=== PATIENT | male | born 1930 | race Caucasian/White ===

== ENCOUNTER 2016-09-16 09:44 | Outpatient (CLI) | payer MEDICARE, BC ==
[2016-09-16 17:55] LABS: BASOPHILS % (AUTO) 0.4 %; EOSINOPHILS # (AUTO) 0.1 10^3/uL (0.0-0.7); EOSINOPHILS % (AUTO) 2.2 %; HCT - HEMATOCRIT 38.6 % (42.0-52.0); HGB - HEMOGLOBIN 12.8 g/dL (14.0-18.0); LYMPHOCYTES # (AUTO) 1.2 10^3/uL (1.5-3.5); LYMPHOCYTES % (AUTO) 23.5 %; MEAN CORPUSCULAR HEMOGLOBIN 30.5 pg (27.0-31.0); MEAN CORPUSCULAR HGB CONC 33.3 g/dL (32.0-36.0); MEAN CORPUSCULAR VOLUME 91.7 fL (80.0-94.0); MEAN PLATELET VOLUME 11.5 fL (7.4-11.4); MONOCYTES # (AUTO) 0.6 10^3/uL (0.0-1.0); MONOCYTES % (AUTO) 12.5 %; NEUTROPHILS # (AUTO) 3.2 10^3/uL (1.5-6.6); NEUTROPHILS % (AUTO) 61.4 %; NUCLEATED RED BLOOD CELLS AUTO 0.2 /100WBC; RED CELL DISTRIBUTION WIDTH 13.4 % (12.0-15.0); UNCORRECTED WHITE BLOOD COUNT 5.1 x10^3/uL; WHITE BLOOD COUNT 5.1 x10^3/uL (4.8-10.8)
[2016-09-16 18:07] LABS: ALBUMIN/GLOBULIN RATIO 1.7 (1.0-2.2); BILIRUBIN,TOTAL 0.6 mg/dL (0.2-1.0); CALCIUM 9.3 mg/dL (8.5-10.3); CREATININE 0.9 mg/dL (0.6-1.2); POTASSIUM 3.8 mmol/L (3.5-5.0); TOTAL PROTEIN 6.7 g/dL (6.7-8.2)
[2016-09-16 18:21] LABS: HEMOGLOBIN A1C 0.68 g/dL
== END 2016-09-16 09:45 | disposition home or self-care (01) ==
LOC: LAB.F 09:44
PROVIDERS: ATTEND Family Medicine
DX: E11.9 Type 2 diabetes mellitus without complications (principal); Z85.46 Personal history of malignant neoplasm of prostate; I10 Essential (primary) hypertension
CPT/HCPCS: 36415; 80053; 82043; 83036; 84153; 85025

== ENCOUNTER 2016-09-18 14:27 | Outpatient (CLI) | payer MEDICARE, BC | END 2016-09-18 14:28 | disposition home or self-care (01) | DX: D64.9 Anemia, unspecified (principal) ==

== ENCOUNTER 2017-04-13 09:07 | Outpatient (CLI) | payer MEDICARE, BC ==
[2017-04-13 19:01] LABS: BASOPHILS % (AUTO) 0.5 %; EOSINOPHILS # (AUTO) 0.2 10^3/uL (0.0-0.7); EOSINOPHILS % (AUTO) 4.2 %; HCT - HEMATOCRIT 39.8 % (42.0-52.0); HGB - HEMOGLOBIN 13.4 g/dL (14.0-18.0); LYMPHOCYTES # (AUTO) 1.2 10^3/uL (1.5-3.5); LYMPHOCYTES % (AUTO) 25.4 %; MEAN CORPUSCULAR HEMOGLOBIN 30.9 pg (27.0-31.0); MEAN CORPUSCULAR HGB CONC 33.7 g/dL (32.0-36.0); MEAN CORPUSCULAR VOLUME 91.7 fL (80.0-94.0); MEAN PLATELET VOLUME 11.6 fL (7.4-11.4); MONOCYTES # (AUTO) 0.6 10^3/uL (0.0-1.0); MONOCYTES % (AUTO) 13.7 %; NEUTROPHILS # (AUTO) 2.7 10^3/uL (1.5-6.6); NEUTROPHILS % (AUTO) 56.2 %; NUCLEATED RED BLOOD CELLS AUTO 0.2 /100WBC; RED BLOOD COUNT 4.34 10^6/uL (4.70-6.10); RED CELL DISTRIBUTION WIDTH 14.5 % (12.0-15.0); UNCORRECTED WHITE BLOOD COUNT 4.7 x10^3/uL; WHITE BLOOD COUNT 4.7 x10^3/uL (4.8-10.8)
[2017-04-13 19:12] LABS: ALBUMIN/GLOBULIN RATIO 1.8 (1.0-2.2); BILIRUBIN,TOTAL 0.8 mg/dL (0.2-1.0); BUN - BLOOD UREA NITROGEN 22 mg/dL (6-20); CALCIUM 9.1 mg/dL (8.5-10.3); CARBON DIOXIDE - CO2 27 mmol/L (21-32); CHLORIDE 103 mmol/L (101-111); CHOL/HDL RATIO 2.3 (<5.0); CHOLESTEROL 164 mg/dL; CREATININE 0.9 mg/dL (0.6-1.2); GFR - MDRD 80 (>89); GLUCOSE 134 mg/dL (70-100); HDL CHOLESTEROL 71 mg/dL; LDL/HDL RATIO 1.1 (<3.6); POTASSIUM 3.6 mmol/L (3.5-5.0); SODIUM 138 mmol/L (135-145); TOTAL PROTEIN 6.7 g/dL (6.7-8.2); TRIGLYCERIDES 65 mg/dL; VLDL CHOLESTEROL 13 mg/dL
[2017-04-13 20:16] LABS: HEMOGLOBIN A1C 0.62 g/dL
== END 2017-04-13 09:08 | disposition home or self-care (01) ==
LOC: LAB.F 09:07
PROVIDERS: ATTEND Family Medicine
DX: D64.9 Anemia, unspecified (principal); E11.9 Type 2 diabetes mellitus without complications; E78.5 Hyperlipidemia, unspecified; C61 Malignant neoplasm of prostate; I10 Essential (primary) hypertension
CPT/HCPCS: 36415; 80053; 80061; 83036; 84443; 85025

== ENCOUNTER 2017-12-07 09:37 | Outpatient (CLI) | payer MEDICARE, BC ==
[2017-12-07 19:16] LABS: ALBUMIN 4.1 g/dL (3.2-5.5); ALBUMIN/GLOBULIN RATIO 1.7 (1.0-2.2); BILIRUBIN,TOTAL 0.8 mg/dL (0.2-1.0); CALCIUM 9.4 mg/dL (8.5-10.3); CREATININE 0.9 mg/dL (0.6-1.2); TOTAL PROTEIN 6.5 g/dL (6.7-8.2)
[2017-12-07 20:03] LABS: HB2 TOTAL 14.1 g/dL; HEMOGLOBIN A1C 0.63 g/dL; HEMOGLOBIN A1C % 6.2 % (4.6-6.2)
== END 2017-12-07 09:38 | disposition home or self-care (01) ==
LOC: LAB.F 09:37
PROVIDERS: ATTEND Family Medicine
DX: E11.9 Type 2 diabetes mellitus without complications (principal)
CPT/HCPCS: 36415; 80053; 83036

== ENCOUNTER 2018-06-09 09:27 | Outpatient (CLI) | payer MEDICARE, BC ==
[2018-06-09 18:01] LABS: ALBUMIN 4.1 g/dL (3.2-5.5); ALBUMIN/GLOBULIN RATIO 1.6 (1.0-2.2); ALKALINE PHOSPHATASE 45 IU/L (42-121); ALT ALANINE AMINOTRANSFERASE 18 IU/L (10-60); AST ASPARTATE AMINOTRANSFERASE 21 IU/L (10-42); BUN - BLOOD UREA NITROGEN 25 mg/dL (6-20); CARBON DIOXIDE - CO2 28 mmol/L (21-32); CHLORIDE 98 mmol/L (101-111); CHOLESTEROL 169 mg/dL; CREATININE 0.8 mg/dL (0.6-1.2); GFR - MDRD 92 (>89); GLUCOSE 136 mg/dL (70-100); HDL CHOLESTEROL 70 mg/dL; SODIUM 136 mmol/L (135-145); TOTAL PROTEIN 6.7 g/dL (6.7-8.2)
[2018-06-09 18:02] LABS: CHOL/HDL RATIO 2.4 (<5.0)
[2018-06-09 18:06] LABS: HEMOGLOBIN A1C 0.6 g/dL; HEMOGLOBIN A1C % 6.1 % (4.6-6.2)
[2018-06-09 18:10] LABS: BASOPHILS % (AUTO) 0.5 %; EOSINOPHILS # (AUTO) 0.1 10^3/uL (0.0-0.7); EOSINOPHILS % (AUTO) 3.2 %; HGB - HEMOGLOBIN 13.2 g/dL (14.0-18.0); LYMPHOCYTES # (AUTO) 0.9 10^3/uL (1.5-3.5); LYMPHOCYTES % (AUTO) 18.9 %; MEAN CORPUSCULAR HEMOGLOBIN 31.2 pg (27.0-31.0); MEAN CORPUSCULAR HGB CONC 33.2 g/dL (32.0-36.0); MEAN CORPUSCULAR VOLUME 94.1 fL (80.0-94.0); MONOCYTES # (AUTO) 0.7 10^3/uL (0.0-1.0); MONOCYTES % (AUTO) 14.2 %; NEUTROPHILS # (AUTO) 2.9 10^3/uL (1.5-6.6); NEUTROPHILS % (AUTO) 63.2 %; PLT - PLATELET COUNT 207 10^3/uL (130-450); RED BLOOD COUNT 4.23 10^6/uL (4.70-6.10); WHITE BLOOD COUNT 4.7 x10^3/uL (4.8-10.8)
[2018-06-09 18:51] LABS: LDL CHOLESTEROL,DIRECT 95 mg/dL; LDLD/HDL RATIO 1.4 (<3.6)
== END 2018-06-09 09:28 | disposition home or self-care (01) ==
LOC: LAB.F 09:27
PROVIDERS: ATTEND Family Medicine
DX: N40.1 Benign prostatic hyperplasia with lower urinary tract symptoms (principal); C61 Malignant neoplasm of prostate; I10 Essential (primary) hypertension; E78.5 Hyperlipidemia, unspecified; E11.9 Type 2 diabetes mellitus without complications
CPT/HCPCS: 36415; 80053; 80061; 82043; 83036; 83721; 84153; 84443; 85025

== ENCOUNTER 2019-05-05 17:36 | Outpatient (CLI) | payer MEDICARE, BC ==
[2019-05-05 17:59] LABS: CALCIUM 9.1 mg/dL (8.5-10.3); CREATININE 1.3 mg/dL (0.6-1.2); URIC ACID 3.6 mg/dL (2.6-7.2)
--- NOTE | 2019-05-06 09:46 | XRAY Report ---
Reason: ARTHRITIS,RT ANKLE Procedure Date: 05/05/2019 Accession Number: [id number] / [id number] Procedure: XR - Ankle 3 View RT CPT Code: Final Report FULL RESULT: EXAM: RIGHT ANKLE RADIOGRAPHY EXAM DATE: 05/05/2019 06:14 PM. CLINICAL HISTORY: Right ankle pain for 2 months. Arthritis right ankle. COMPARISON: None. TECHNIQUE: 3 views. FINDINGS: Bones: No acute fracture. No bony lesion. Degenerative spurring. Prominent calcification and osteophyte seen along the medial malleolus. No bony erosions. Small plantar calcaneal spur. Joints: Ankle mortise is well maintained. Joint space narrowing. No dislocation. No ankle effusion. Soft Tissues: Soft tissue swelling. Vascular calcifications. IMPRESSION: 1. Degenerative changes of the right ankle. RADIA
== END 2019-05-05 17:37 | disposition home or self-care (01) ==
LOC: DI 17:36
PROVIDERS: ATTEND Family Medicine
DX: M19.071 Primary osteoarthritis, right ankle and foot (principal)
CPT/HCPCS: 36415; 80048; 84550; 85651

== ENCOUNTER 2020-02-11 10:20 | Emergency (ER) | payer MEDICARE, BC ==
[2020-02-11] MEDS ORDERED: SODIUM CHLORIDE 0.9% 1,000 ML IV STA ×2 (11:02→13:01)
[2020-02-11 11:27] LABS: BASOPHILS % (AUTO) 0.4 %; EOSINOPHILS % (AUTO) 0.1 %; HGB - HEMOGLOBIN 12.1 g/dL (14.0-18.0); LYMPHOCYTES # (AUTO) 0.5 10^3/uL (1.5-3.5); LYMPHOCYTES % (AUTO) 5.7 %; MEAN CORPUSCULAR HEMOGLOBIN 31.3 pg (27.0-31.0); MEAN CORPUSCULAR HGB CONC 33.4 g/dL (32.0-36.0); MEAN CORPUSCULAR VOLUME 93.8 fL (80.0-94.0); MEAN PLATELET VOLUME 10.4 fL (7.4-11.4); MONOCYTES % (AUTO) 11.6 %; NEUTROPHILS # (AUTO) 6.7 10^3/uL (1.5-6.6); NEUTROPHILS % (AUTO) 81.8 %; PLT - PLATELET COUNT 172 10^3/uL (130-450); RED BLOOD COUNT 3.86 10^6/uL (4.70-6.10); RED CELL DISTRIBUTION WIDTH 13.5 % (12.0-15.0); WHITE BLOOD COUNT 8.2 x10^3/uL (4.8-10.8)
--- NOTE | 2020-02-11 11:27 | XRAY Report ---
PROCEDURE: Chest 1 View X-Ray INDICATIONS: chest pain TECHNIQUE: One view of the chest was acquired. COMPARISON: none FINDINGS: Surgical changes and devices: None. Lungs and pleura: No pleural effusions or pneumothorax. Lungs are clear. Mediastinum: Mediastinal contours appear normal. Heart size is normal. Bones and chest wall: No suspicious bony lesions. Overlying soft tissues appear unremarkable. IMPRESSION: Chest without acute cardiopulmonary abnormalities. Reviewed by: Rony Billings MD on 02/11/2020 11:26 AM PDT Approved by: Rony Billings MD on 02/11/2020 11:26 AM PDT Station ID: [id number]
--- NOTE | 2020-02-11 11:31 | ED Physician Documentation ---
PD HPI FEVER - Stated complaint Stated Complaint: FEVER - Chief complaint Chief Complaint: Fever - History obtained from History obtained from: Patient, Family - History of Present Illness Timing - onset: Last night Timing duration: Hours Timing details: Gradual onset, Still present, Waxing and waning Associated symptoms: Chills. No: Sweats, Rigors, Ear pain, Nasal congestion, Rhinorrhea, Sinus pain, Sore throat, Swollen nodes, Dry cough, Productive cough, Hemoptysis, Chest pain, Dyspnea, Abdominal pain, NVD, Urinary symptoms, Rash/skin lesion Contributing factors: No: Sick contact Similar symptoms before: Has not had sx before Recently seen: Not recently seen - Additional information Additional information: 89-year-old male with a prior history of prostate cancer and bladder cancer has developed a fever. He has had undulation of his fever without treatment, he has had some feeling of being cold but denies any rigors. Review of Systems Constitutional: reports: Fever Eyes: denies: Decreased vision Ears: denies: Ear pain Nose: denies: Rhinorrhea / runny nose, Congestion Throat: denies: Sore throat Cardiac: denies: Chest pain / pressure, Palpitations Respiratory: denies: Dyspnea, Cough GI: denies: Abdominal Pain, Nausea, Vomiting : denies: Dysuria, Frequency PD PAST MEDICAL HISTORY - Past Medical History Cardiovascular: Hypertension, High cholesterol Respiratory: None Endocrine/Autoimmune: Type 2 diabetes GI: None : Benign prostate hypertrophy, Kidney stones HEENT: None Psych: None Musculoskeletal: None Derm: None - Past Surgical History General: Colonoscopy - Present Medications Home Medications: Ambulatory Orders Medication Instructions Recorded Confirmed Aspirin [Aspir 81] 81 mg PO DAILY 12/06/13 12/28/13 Hydrochlorothiazide 25 mg PO DAILY 12/06/13 12/28/13 Losartan [Cozaar] 100 mg PO DAILY 12/06/13 12/28/13 Rosuvastatin Calcium [Crestor] 40 mg PO DAILY 12/06/13 12/28/13 amLODIPine [Norvasc] 2.5 mg PO DAILY 12/06/13 12/28/13 Ciprofloxacin HCl [Cipro] 500 mg PO BID #14 tablet 02/11/20 - Allergies Allergies/Adverse Reactions: Allergies Allergy/AdvReac Type Severity Reaction Status Date / Time No Known Drug Allergies Allergy Verified 02/11/20 10:34 PD ED PE NORMAL - Vitals Vital signs reviewed: Yes (hypertensive mild with wide pulse pressure. ) - General General: Alert and oriented X 3, No acute distress, Well developed/nourished - HEENT HEENT: Atraumatic, PERRL, EOMI, Ears normal, Other (dry mucous membranes ) - Neck Neck: Supple, no meningeal sign, No bony TTP - Cardiac Cardiac: RRR, No murmur - Respiratory Respiratory: No respiratory distress, Clear bilaterally - Abdomen Abdomen: Soft, Non tender - Back Back: No CVA TTP, No spinal TTP - Derm Derm: Normal color, Warm and dry, No rash - Extremities Extremities: No deformity, No edema, No calf tenderness / cord - Neuro Neuro: Alert and oriented X 3, manager equipment 2-12 intact, No motor deficit, No sensory deficit, Normal speech Eye Opening: Spontaneous Motor: Obeys Commands Verbal: Oriented GCS Score: 15 - Psych Psych: Normal mood, Normal affect Results - Vitals Vitals: Vital Signs - 24 hr 02/11/20 02/11/20 02/11/20 10:23 11:00 12:36 Temperature 37.2 C 37.7 C H 36.9 C Heart Rate 57 L 61 70 Respiratory 16 13 16 Rate Blood Pressure 138/48 H 122/49 L 139/85 H O2 Saturation 98 97 100 02/11/20 13:50 Temperature 36.9 C Heart Rate 71 Respiratory 8 L Rate Blood Pressure 147/81 H O2 Saturation 100 Oxygen O2 Source Room air - Labs Labs: Laboratory Tests 02/11/20 02/11/20 02/11/20 10:35 10:35 11:21 WBC 8.2 RBC 3.86 L Hgb 12.1 L Hct 36.2 L MCV 93.8 MCH 31.3 H MCHC 33.4 RDW 13.5 Plt Count 172 MPV 10.4 Neut # (Auto) 6.7 H Lymph # (Auto) 0.5 L [place] # (Auto) 1.0 Eos # (Auto) 0.0 Baso # (Auto) 0.0 Absolute Nucleated RBC 0.00 Nucleated RBC % 0.0 Sodium 137 Potassium 4.1 Chloride 101 Carbon Dioxide 25 Anion Gap 11.0 BUN 42 H Creatinine 1.6 H Estimated GFR (MDRD) 41 L Glucose 142 H Lactic Acid 1.2 Calcium 9.0 Total Bilirubin 0.9 AST 21 ALT 20 Alkaline Phosphatase 48 Total Protein 6.6 L Albumin 3.8 Globulin 2.8 Albumin/Globulin Ratio 1.4 Lipase 34 Urine Color Urine Clarity Urine pH Ur Specific [place] Urine Protein Urine Glucose (UA) Urine Ketones Urine Occult Blood Urine Nitrite Urine Bilirubin Urine Urobilinogen Ur Leukocyte Esterase Urine RBC Urine WBC Ur Squamous Epith Cells Urine Bacteria Ur Microscopic Review Urine Culture Comments 02/11/20 13:40 WBC RBC Hgb Hct MCV MCH MCHC RDW Plt Count MPV Neut # (Auto) Lymph # (Auto) [place] # (Auto) Eos # (Auto) Baso # (Auto) Absolute Nucleated RBC Nucleated RBC % Sodium Potassium Chloride Carbon Dioxide Anion Gap BUN Creatinine Estimated GFR (MDRD) Glucose Lactic Acid Calcium Total Bilirubin AST ALT Alkaline Phosphatase Total Protein Albumin Globulin Albumin/Globulin Ratio Lipase Urine Color YELLOW Urine Clarity CLOUDY Urine pH 6.0 Ur Specific [place] 1.025 Urine Protein 30 H Urine Glucose (UA) NEGATIVE Urine Ketones TRACE Urine Occult Blood TRACE-INTA Urine Nitrite POSITIVE H Urine Bilirubin NEGATIVE Urine Urobilinogen 0.2 (NORMAL) Ur Leukocyte Esterase MODERATE H Urine RBC 6-10 H Urine WBC >25 H Ur Squamous Epith Cells RARE Squamous Urine Bacteria Moderate H Ur Microscopic Review INDICATED Urine Culture Comments INDICATED - Rads (name of study) chest Radiology: Prelim report reviewed (Impression: Chest without acute cardiopulmonary abnormalities.), EMP read indepedently, See rad report PD MEDICAL DECISION MAKING - ED course Complexity details: reviewed old records, reviewed results, re-evaluated patient, considered differential, d/w patient, d/w family ED course: 89 y/o male with fever today and not feeling ill with the exception of his shaking chills. Improved with hydration but chills persist. He is administered IV rocephin 1gm. The patient has normal white blood cell count normal lactate and evidence of infection in the urine. He would like to go home. I discussed with the patient the possibility of a call back to the hospital for IV antibiotics for positive blood culture if this occurs and he is made aware of this.I have asked the patient return to the emergency department should he feel ill have significant weakness or Rigor's. Departure - Departure Disposition: 01 Home, Self Care Clinical Impression: Urinary tract infection Qualifiers: Urinary tract infection type: acute cystitis Hematuria presence: with hematuria Qualified Code(s): N30.01 - Acute cystitis with hematuria Condition: Stable Instructions: ED UTI Cystitis Male Follow-Up: Hi Bolden MD [Primary Care Provider] - Prescriptions: Ciprofloxacin HCl [Cipro] 500 mg PO BID #14 tablet
[2020-02-11 11:38] LABS: ALBUMIN 3.8 g/dL (3.2-5.5); ALBUMIN/GLOBULIN RATIO 1.4 (1.0-2.2); BILIRUBIN,TOTAL 0.9 mg/dL (0.2-1.0); CREATININE 1.6 mg/dL (0.6-1.2); TOTAL PROTEIN 6.6 g/dL (6.7-8.2)
[2020-02-11 14:00] LABS: BILIRUBIN,URINE NEGATIVE (NEGATIVE); GLUCOSE, URINE (UA) NEGATIVE (NEGATIVE); KETONES,URINE (UA) TRACE mg/dL (NEGATIVE); LEUKOCYTE ESTERASE, URINE MODERATE (NEGATIVE); NITRITE,URINE POSITIVE (NEGATIVE); OCCULT BLOOD,URINE TRACE-INTA (NEGATIVE); PROTEIN,URINE 30 mg/dL (NEGATIVE); UROBILINOGEN,URINE 0.2 (NORMAL) E.U./dL (NORMAL)
[2020-02-11 14:08] LABS: CLARITY,URINE CLOUDY (CLEAR)
[2020-02-11 14:09] LABS: BACTERIA,URINE Moderate /HPF (None Seen); SQUAMOUS EPITHELIAL CELL,UR RARE Squamous (<= Few)
[2020-02-11] MEDS ORDERED: cefTRIAXone 1 GM in SODIUM CHLORIDE 0.9% MINIBAG 100 ML IV STA (14:13)
[2020-02-11 15:17] VITALS: BP 131/72
== END 2020-02-11 15:20 | disposition home or self-care (01) ==
LOC: ED 10:20
DX: N30.01 Acute cystitis with hematuria (principal); R50.9 Fever, unspecified; E11.9 Type 2 diabetes mellitus without complications; I10 Essential (primary) hypertension; Z85.46 Personal history of malignant neoplasm of prostate; Z85.51 Personal history of malignant neoplasm of bladder
CPT/HCPCS: 36415; 71045; 80053; 81001; 81003; 83605; 83690; 85025; 87040; 87077; 87086; 87181; 96365; 99284

== ENCOUNTER 2020-02-11 23:46 | Inpatient (IN) | payer MEDICARE, BC ==
[2020-02-12 00:22] LABS: HGB - HEMOGLOBIN 11.6 g/dL (14.0-18.0); MEAN CORPUSCULAR HEMOGLOBIN 31.3 pg (27.0-31.0); MEAN CORPUSCULAR HGB CONC 32.9 g/dL (32.0-36.0); MEAN CORPUSCULAR VOLUME 95.1 fL (80.0-94.0); MEAN PLATELET VOLUME 9.8 fL (7.4-11.4); RED BLOOD COUNT 3.71 10^6/uL (4.70-6.10); RED CELL DISTRIBUTION WIDTH 13.3 % (12.0-15.0); WHITE BLOOD COUNT 7.4 x10^3/uL (4.8-10.8)
--- NOTE | 2020-02-12 00:22 | ED Physician Documentation ---
PD HPI FEVER - Stated complaint Stated Complaint: FEVER - Chief complaint Chief Complaint: General - History obtained from History obtained from: Patient - History of Present Illness Timing - onset: Other (2-3 days (, approximately midnight)) Timing details: Abrupt onset Pain level now: 2 (generalized aches/myalgias) Associated symptoms: Chills, Sweats Recently seen: Emergency Dept (T+R earlier today) - Additional information Additional information: Starting at approximately midnight on , patient had generalized myalgias and malaise with Tmax of 100. He had chills, sweats, and recurrent episodes of myalgias/malaise but earlier today (Thursday) developed fever to 102 and thus brought to ED earlier today, testing revealed UTI and he was febrile but other test results were reassuring and he says he felt well enough that he expressed preference for d/c home. He was told he would be called should his blood culture yield positive result, and [facility] contacted the ED with (+) blood culture (gram negative bacilli); he was thus called and instructed to return to ED. He last had antipyretic at 9 pm (Advil PM). He has shaking chills throughout this H+P. Review of Systems Constitutional: reports: Fever, Chills, Myalgias, Fatigue, Sweats Eyes: reports: Reviewed and negative Ears: reports: Reviewed and negative Nose: reports: Reviewed and negative Throat: reports: Reviewed and negative Cardiac: reports: Reviewed and negative Respiratory: reports: Reviewed and negative GI: reports: Reviewed and negative : reports: Frequency. denies: Dysuria Skin: reports: Reviewed and negative Musculoskeletal: reports: Reviewed and negative Neurologic: reports: Generalized weakness. denies: Focal weakness, Numbness, Confused, Altered mental status, Headache PD PAST MEDICAL HISTORY - Past Medical History Cardiovascular: Hypertension, High cholesterol Respiratory: None Endocrine/Autoimmune: Type 2 diabetes GI: None : Benign prostate hypertrophy, Kidney stones HEENT: None Psych: None Musculoskeletal: None Derm: None - Past Surgical History General: Colonoscopy - Present Medications Home Medications: Ambulatory Orders Medication Instructions Recorded Confirmed Hydrochlorothiazide 25 mg PO DAILY 12/06/13 02/12/20 Rosuvastatin Calcium [Crestor] 40 mg PO DAILY 12/06/13 02/12/20 amLODIPine [Norvasc] 2.5 mg PO DAILY 12/06/13 02/12/20 Ciprofloxacin HCl [Cipro] 500 mg PO BID #14 tablet 02/11/20 02/12/20 Irbesartan 300 mg PO DAILY 02/12/20 02/12/20 - Allergies Allergies/Adverse Reactions: Allergies Allergy/AdvReac Type Severity Reaction Status Date / Time No Known Drug Allergies Allergy Verified 02/12/20 00:12 - Living Situation Living Situation: reports: With family Living Arrangement: reports: At home - Social History Does the pt smoke?: No PD ED PE NORMAL - Vitals Vital signs reviewed: Yes - General General: Alert and oriented X 3, Well developed/nourished, Other (shaking chills during H+P) - HEENT HEENT: Moist mucous membranes - Neck Neck: Supple, no meningeal sign - Cardiac Cardiac: RRR, No murmur - Respiratory Respiratory: No respiratory distress, Clear bilaterally - Abdomen Abdomen: Soft, Non tender - Back Back: No CVA TTP - Derm Derm: Normal color, Other (feels hot to touch) - Extremities Extremities: No edema - Neuro Neuro: Alert and oriented X 3 Results - Vitals Vitals: Vital Signs - 24 hr 02/11/20 02/12/20 23:55 00:38 Temperature 37.4 C 38.2 C H Heart Rate 77 105 H Respiratory 26 H 24 Rate Blood Pressure 101/82 H 153/80 H O2 Saturation 97 94 Oxygen O2 Source Room air - Labs Labs: Laboratory Tests 02/12/20 02/12/20 02/12/20 00:02 00:02 00:22 WBC 7.4 RBC 3.71 L Hgb 11.6 L Hct 35.3 L MCV 95.1 H MCH 31.3 H MCHC 32.9 RDW 13.3 Plt Count 153 MPV 9.8 Sodium 137 Potassium 3.8 Chloride 103 Carbon Dioxide 24 Anion Gap 10.0 BUN 33 H Creatinine 1.5 H Estimated GFR (MDRD) 44 L Glucose 121 H Lactic Acid 2.0 Calcium 8.6 Total Bilirubin 0.7 AST 24 ALT 20 Alkaline Phosphatase 44 Total Protein 6.4 L Albumin 4.0 Globulin 2.4 Albumin/Globulin Ratio 1.7 Lipase 35 Urine Color Urine Clarity Urine pH Ur Specific [place] Urine Protein Urine Glucose (UA) Urine Ketones Urine Occult Blood Urine Nitrite Urine Bilirubin Urine Urobilinogen Ur Leukocyte Esterase Urine RBC Urine WBC Ur Squamous Epith Cells Urine Bacteria Ur Microscopic Review Urine Culture Comments 02/12/20 00:41 WBC RBC Hgb Hct MCV MCH MCHC RDW Plt Count MPV Sodium Potassium Chloride Carbon Dioxide Anion Gap BUN Creatinine Estimated GFR (MDRD) Glucose Lactic Acid Calcium Total Bilirubin AST ALT Alkaline Phosphatase Total Protein Albumin Globulin Albumin/Globulin Ratio Lipase Urine Color YELLOW Urine Clarity CLEAR Urine pH 5.5 Ur Specific [place] 1.025 Urine Protein 100 H Urine Glucose (UA) NEGATIVE Urine Ketones TRACE Urine Occult Blood LARGE H Urine Nitrite NEGATIVE Urine Bilirubin NEGATIVE Urine Urobilinogen 0.2 (NORMAL) Ur Leukocyte Esterase SMALL H Urine RBC 11-25 H Urine WBC 11-25 H Ur Squamous Epith Cells RARE Squamous Urine Bacteria Rare Ur Microscopic Review INDICATED Urine Culture Comments INDICATED PD MEDICAL DECISION MAKING - ED course Complexity details: reviewed old records, reviewed results, re-evaluated patient, considered differential, d/w patient, d/w family ED course: patient meets criteria for sepsis but not severe sepsis nor septic shock. Given his (+) blood culture from earlier today, will admit for IV antibiotics and further observation to monitor for potential progression of infectious process - Sepsis Event Current Stage of Sepsis: Sepsis Possible source of Sepsis: Genitourinary Mental/Cognitive Status: Alert/Oriented X3, Normal for patient Reason for not giving 30ml/kg crystalloid fluids: Other (not in severe sepsis nor septic shock) Capillary refill: Less than 2 seconds Peripheral Pulse Strength: 3+ Normal Peripheral Pulse Location: Radial Bedside ultrasound performed: No Sepsis Comment: meets criteria for sepsis (temp greater than 38, respiratory rate greater than 20) but not severe sepsis nor septic shock Departure - Departure Disposition: 66 [facility] DC/Xfer Clinical Impression: Sepsis Qualifiers: Sepsis type: sepsis due to unspecified organism Sepsis acute organ dysfunction status: without acute organ dysfunction Qualified Code(s): A41.9 - Sepsis, unspecified organism Condition: Stable Discharge Date/Time: 02/12/20 01:20
[2020-02-12 00:37] LABS: ALBUMIN/GLOBULIN RATIO 1.7 (1.0-2.2); BILIRUBIN,TOTAL 0.7 mg/dL (0.2-1.0); CALCIUM 8.6 mg/dL (8.5-10.3); CREATININE 1.5 mg/dL (0.6-1.2); TOTAL PROTEIN 6.4 g/dL (6.7-8.2)
[2020-02-12] MEDS ORDERED: CEFEPIME 2 GM in SODIUM CHLORIDE 0.9% MINIBAG 100 ML IV STA (00:41)
[2020-02-12] MEDS ORDERED: ACETAMINOPHEN 325 MG TABLET PO PRN (00:43)
[2020-02-12] MEDS ORDERED: ONDANSETRON 4 MG/2 ML VIAL IVP PRN (00:43)
[2020-02-12] MEDS ORDERED: SODIUM CHLORIDE FLUSH 0.9% 10 ML SYRINGE IVP PRN (00:43)
[2020-02-12] MEDS ORDERED: ACETAMINOPHEN 325 MG TABLET PO STA (00:44)
[2020-02-12] MEDS ORDERED: SODIUM CHLORIDE 0.9% 1,000 ML IV STA (00:45)
[2020-02-12 00:48] LABS: BILIRUBIN,URINE NEGATIVE (NEGATIVE); GLUCOSE, URINE (UA) NEGATIVE (NEGATIVE); KETONES,URINE (UA) TRACE mg/dL (NEGATIVE); LEUKOCYTE ESTERASE, URINE SMALL (NEGATIVE); NITRITE,URINE NEGATIVE (NEGATIVE); OCCULT BLOOD,URINE LARGE (NEGATIVE); PH,URINE 5.5 PH (5.0-7.5); PROTEIN,URINE 100 mg/dL (NEGATIVE); UROBILINOGEN,URINE 0.2 (NORMAL) E.U./dL (NORMAL)
--- NOTE | 2020-02-12 00:48 | HISTORY & PHYSICAL EXAMINATION ---
Chief Complaint - Chief Complaint Chief Complaint: Rigors History of Present Illness - Admitted From Admitted From:: [facility] ED - History Obtained From Records Reviewed: Yes History obtained from: Patient and - History of Present Illness HPI Comment/Other: Patient is an 89-year-old male with medical history significant for hypertension , hyperlipidemia, prostate cancer, bladder cancer and bladder stones who presented to the ED with rigor and because initial blood cultures were positive for gram negative bacilli. Patient symptoms started 2 days ago around midnight when he complained of not feeling well. His temperature at the time was 100 F. He was given Tylenol. By Thursday which was 2 days later he had a maximum temperature as high as 102 Fahrenheit. Recheck an hour later was 98. The contacted their primary care physician's office and was advised to come to the emergency room. He presented to the emergency department around 10 AM on Thursday. Work-up in the ED revealed that he had a urinary tract infection. At the time he did not have a white count, his lactic acid was normal and he was afebrile. Consequently he was given 1 g of Rocephin and a prescription for Cipro which he took 1 dose upon returning home. He went to bed around 5:30 pm And around 10 PM he was completely drenched in sweat. He was also experiencing uncontrollable shaking. About an hour after this the received a call from the [facility] asking him to return because his blood cultures were growing gram- negative bacilli. Consequently he returned to the hospital. At time of this visit the patient was having significant rigors. He denied chest pain, dyspnea, abdominal pain, nausea or vomiting. Additional blood cultures were drawn. And the patient was started on cefepime. He is being admitted for further treatment. History - Past Medical History Cardiovascular: reports: Hypertension, High cholesterol Respiratory: reports: None Endocrine/Autoimmune: reports: Type 2 diabetes GI: reports: None : reports: Benign prostate hypertrophy, Kidney stones, Other (bladder cancer and prostate cancer) HEENT: reports: None Psych: reports: None Musculoskeletal: reports: None Derm: reports: None MRSA Hx?: No - Past Surgical History General: reports: Colonoscopy, Other (hernia repair bilaterally with revist of one side) Ortho: reports: Other (bone spur and toes straightened on the right) HEENT: reports: Tonsil/Adenoidectomy - Family & Social History Family History Comment/Other: Patient just found out about his father 3 years ago. His father had when the patient was 12 years old. His mother had a pacemaker placed in her 60's. She had a CVA shortly after that from which she . Patient's first sister was just diagnosed with stage IV lung cancer at age 94. His other sister is 91 with no significant medical problems. Social History Notes: He drinks a glass or 2 of wine daily. He does not use tobacco products or recreational substances. He lives at home with his . - POLST Patient has POLST: No POLST Status: Full Code Meds/Allgy - Home Medications Home Medications: Ambulatory Orders Medication Instructions Recorded Confirmed Hydrochlorothiazide 25 mg PO DAILY 12/06/13 12/28/13 Rosuvastatin Calcium [Crestor] 40 mg PO DAILY 12/06/13 12/28/13 amLODIPine [Norvasc] 2.5 mg PO DAILY 12/06/13 12/28/13 Ciprofloxacin HCl [Cipro] 500 mg PO BID #14 tablet 02/11/20 Irbesartan 300 mg PO DAILY 02/12/20 02/12/20 - Allergies Allergies/Adverse Reactions: Allergies Allergy/AdvReac Type Severity Reaction Status Date / Time No Known Drug Allergies Allergy Verified 02/12/20 00:12 Review of Systems - Constitutional Constitutional: reports: Fever, Diaphoresis, Other (rigors) - Eyes Eyes: denies: Pain, Dipolpia - Ears, Nose & Throat Ears, Nose & Throat: denies: Ear pain - Cardiovascular Cariovascular: denies: Irregular heart rate, Palpitations, Chest pain, Edema, Lightheadedness, Syncope - Respiratory Respiratory: denies: Cough, Sputum production, Wheezing, Snoring, SOB at rest, SOB with exertion - Gastrointestinal Gastrointestinal: denies: Abdominal pain, Abdominal distention, Constipation, Diarrhea, Nausea, Vomiting, Reflux/heartburn - Genitourinary Genitourinary: reports: Hematuria. denies: Dysuria, Frequency, Urgency, Incontinence, Flank pain - Musculoskeletal Musculoskeletal: denies: Muscle pain, Back pain, Muscle aches, Stiffness - Integumentary Integumentary: denies: Rash, Pruritis, Lesions - Neurological Neurological: denies: General weakness, Focal weakness, Headache, Dizziness - Psychiatric Psychiatric: denies: Depression, Anxiety - Endocrine Endocrine: denies: Polyuria, Polydypsia - Hematologic/Lymphatic Hematologic/Lymphatic: denies: Anemia, Bruising Prior Level of Functionality: Patient is independent of activities of daily living Exam - Vital Signs Vital Signs: Vital Signs x48h Temp Pulse Resp BP Pulse Ox 02/12/20 00:38 38.2 C H 105 H 24 153/80 H 94 02/11/20 23:55 37.4 C 77 26 H 101/82 H 97 - Physical Exam General Appearance: positive: Moderate distress, Other (rigors, febrile) Eyes Bilateral: positive: PERRL, EOMI ENT: positive: Dry mucous membranes Neck: positive: Thyroid nml, No JVD Respiratory: positive: Chest non-tender, No respiratory distress, Breath sounds nml. negative: Wheezes, Rales, Rhonchi Cardiovascular: positive: Regular rate & rhythm, No murmur Abdomen: positive: Non-tender, No organomegaly, Nml bowel sounds, No distention. negative: Guarding, Rebound Back: positive: Nml inspection Skin: positive: Color nml, No rash, Warm, Dry Extremities: positive: Non-tender, Full ROM, Nml appearance, No pedal edema Neurologic/Psychiatric: positive: Oriented x3, Mood/affect nml Sepsis Event Note (H) - Evaluation Current Stage of Sepsis: Sepsis Possible source of Sepsis: positive: Genitourinary - Sepsis Criteria Sepsis Criteria: Recorded Temperature greater than 38.3C or Less than 36C, Recorded Respiratory Rate greater than 20 Conclusion/Plan - Problem List (1) Sepsis Conclusion/Plan: Secondary to UTI. Patient had a T-max of 102.8. Patient is experiencing rigor and drenched in sweat Blood cultures are growing gram-negative bacilli so far. Patient received 1 g of Rocephin earlier in the day and took 1 dose of Cipro at home. Patient was started on cefepime upon return to the ED. We will continue cefepime 2 g every 12 hours. Blood cultures and sensitivities are pending. Patient was given a liter bolus of fluid in the ED. We will continue fluids at 125 mils an hour. Tylenol PRN for fever. Qualifiers: Sepsis type: sepsis due to unspecified organism Sepsis acute organ dysfunction status: without acute organ dysfunction Qualified Code(s): A41.9 - Sepsis, unspecified organism (2) Urinary tract infection Conclusion/Plan: Blood cultures that were obtained earlier in the day are growing gram-negative bacilli. We will await sensitivities. Patient is on cefepime 2 g twice daily. Qualifiers: Urinary tract infection type: acute cystitis Hematuria presence: with hematuria Qualified Code(s): N30.01 - Acute cystitis with hematuria (3) Hypertension Conclusion/Plan: Patient is on irbesartan, hydrochlorothiazide and amlodipine. Will resume once verified. (4) Hyperlipidemia Conclusion/Plan: On rosuvastatin. Will resume it equivalence on formulary once verified. (5) History of bladder cancer Conclusion/Plan: Patient sees Dr. Ngo at [facility]. He underwent chemotherapy treatment into the bladder. He has been going for a cystoscopy yearly. At his last visit he was told to come back in 2 years. (6) History of prostate cancer Conclusion/Plan: Initial diagnosis was in 2003. At the time patient had seed implants. There was recurrence in 2016 for which he was placed on hormone treatment. He follows with Dr. Ngo and Dr. Bhardwaj at [facility] - Lab Results Fish Bones: 02/12/20 00:02 02/12/20 00:02 Core Measures - Anticipated LOS I expect patient to be DC'd or transferred within 96 hours.: Yes - DVT/VTE - Prophylaxis VTE/DVT Device ordered at admit?: Yes VTE/DVT Prophylaxis med ordered at admit?: No
[2020-02-12 00:49] LABS: CLARITY,URINE CLEAR (CLEAR)
[2020-02-12 00:59] LABS: BACTERIA,URINE Rare /HPF (None Seen); SQUAMOUS EPITHELIAL CELL,UR RARE Squamous (<= Few)
[2020-02-12] MEDS ORDERED: SODIUM CHLORIDE 0.9% 1,000 ML IV SCH ×2 (01:00→06:41)
[2020-02-12] MEDS: SODIUM CHLORIDE FLUSH 0.9% 10 ML SYRINGE IVP SCH ×4 (04:29→23:36)
[2020-02-12 05:42] LABS: BASOPHILS % (AUTO) 0.2 %; EOSINOPHILS # (AUTO) 0.3 10^3/uL (0.0-0.7); HGB - HEMOGLOBIN 10.2 g/dL (14.0-18.0); LYMPHOCYTES # (AUTO) 0.4 10^3/uL (1.5-3.5); LYMPHOCYTES % (AUTO) 4.5 %; MEAN CORPUSCULAR HEMOGLOBIN 31.8 pg (27.0-31.0); MEAN CORPUSCULAR HGB CONC 34.1 g/dL (32.0-36.0); MEAN CORPUSCULAR VOLUME 93.1 fL (80.0-94.0); MEAN PLATELET VOLUME 9.2 fL (7.4-11.4); MONOCYTES % (AUTO) 11.4 %; NEUTROPHILS # (AUTO) 7.3 10^3/uL (1.5-6.6); NEUTROPHILS % (AUTO) 80.3 %; PLT - PLATELET COUNT 124 10^3/uL (130-450); RED BLOOD COUNT 3.21 10^6/uL (4.70-6.10); RED CELL DISTRIBUTION WIDTH 13.2 % (12.0-15.0); WHITE BLOOD COUNT 9.1 x10^3/uL (4.8-10.8)
[2020-02-12 05:56] LABS: CALCIUM 7.8 mg/dL (8.5-10.3); CREATININE 1.2 mg/dL (0.6-1.2)
[2020-02-12] MEDS: PANTOPRAZOLE 40 MG TABLET PO SCH (06:36)
[2020-02-12] MEDS ORDERED: SODIUM CHLORIDE 0.9% 500 ML IV ONE (06:41)
[2020-02-12] MEDS ORDERED: IOVERSOL 320 100 ML VIAL IVP ONE (07:40)
[2020-02-12] MEDS ORDERED: ENOXAPARIN 40 MG/0.4 ML SYRINGE SUBQ SCH (09:00)
[2020-02-12] MEDS ORDERED: CEFEPIME 2 GM in SODIUM CHLORIDE 0.9% MINIBAG 100 ML IV SCH (09:00)
--- NOTE | 2020-02-12 09:03 | CT Report ---
PROCEDURE: Abdomen/Pelvis W INDICATIONS: UTI. Sepsis. Bacteremia. Eval for obstruction. CONTRAST: IV CONTRAST: Optiray 320 ml: 100 PO CONTRAST: *NO PO CONTRAST TECHNIQUE: After the administration of IV contrast, 5 mm thick sections acquired from the diaphragms to the symp hysis. 5 mm thick coronal and sagittal reformats were acquired. For radiation dose reduction, the f ollowing was used: automated exposure control, adjustment of mA and/or kV according to patient size. COMPARISON: None. FINDINGS: Image quality: Excellent. ABDOMEN: Lung bases: There is a 5 mm pulmonary nodule in the right lower lobe (series 4/image 2). Atelectasis is present at the bilateral lung bases. There are trace bilateral low-density pleural effusions. No p leural effusion. Heart size is normal. Solid organs: Liver and spleen are normal in size and enhancement. Gallbladder is unremarkable. Bi liary system is non dilated. Pancreas enhances normally. No adrenal nodules. Kidneys demonstrate n ormal size and enhancement, without hydronephrosis. Low-density exophytic cystic lesions are present off the bilateral kidneys. Peritoneum and bowel: Bowel loops demonstrate normal wall thickness and caliber. The appendix is not visualized; however there are no ancillary finding such as right lower quadrant free fluid or fat st randing to suggest acute appendicitis. There are extensive sigmoid colon diverticular outpouchings. N o mucosal thickening or pericolonic fat stranding. No free fluid or air. Nodes and vessels: No retroperitoneal or mesenteric adenopathy by size criteria. Aorta and inferior vena cava are normal in size. Dense atheromatous calcifications are present throughout the abdomina l aorta. Miscellaneous: No ventral hernias. PELVIS: Genitourinary: Bladder wall thickness is normal. Brachii therapy beads are noted throughout the pro state bed. Miscellaneous: No inguinal hernias or adenopathy. Bones: No suspicious bony lesions. No vertebral body compression fractures. IMPRESSION: 1. No acute intra-abdominal findings. The appendix is not visualized; however there are no ancillary findings to suggest acute appendicitis. 2. Extensive sigmoid colon diverticulosis no acute diverticulitis. No acute diverticulitis. 3. Aortic atherosclerosis. Reviewed by: Tess Smith MD on 02/12/2020 9:01 AM PDT Approved by: Tess Smith MD on 02/12/2020 9:01 AM PDT Station ID: [id number]
--- NOTE | 2020-02-12 09:27 | PHARMACY PROGRESS NOTE ---
- Best Possible Medication History Admit Date and Time: 02/12/20 0043 Processed by: Pharmacy Medication History completed: Yes Secondary Source(s): Physician records, Pharmacy records, Insurance records As the person ultimately responsible for medication therapy, providers are able to order a medication from an existing home medication list in [facility] via the "Reconcile Routine" prior to Confirmation of that medication by practice support specialist. Such practice is discouraged except when the physician, in their clinical judgment, deems that a medical need exists for a medication without regard to previous use.
[2020-02-12] MEDS: CEFEPIME 2 GM in SODIUM CHLORIDE 0.9% MINIBAG 100 ML IV SCH ×3 (09:58→22:00)
[2020-02-12] MEDS: LACTATED RINGERS 1,000 ML IV SCH ×2 (10:47→20:02)
--- NOTE | 2020-02-12 16:07 | PROVIDER PROGRESS NOTE ---
Hospitalist Cross-cover Note - Cross-Cover Note Cross-Cover Note: CT of the abdomen and pelvis with IV contrast was ordered today to evaluate for obstruction given the concern for sepsis secondary to a urinary tract infection. There was fortunately no evidence of obstruction on imaging. The patient does feel better. We will keep him on IV cefepime for the time being. Blood cultures are growing gram-negative bacilli and urine cultures pending. We will de-escalate to oral antibiotics based off of culture availability. The patient has remained normotensive. He has been bradycardic with a heart rate in the high 40s to low 50s. We will check a TSH and obtain echocardiogram tomorrow.
--- NOTE | 2020-02-13 09:23 | PROVIDER PROGRESS NOTE ---
Subjective - Prog Note Date Prog Note Date: 02/13/20 - Subjective Subjective: He did not sleep well last night. Denies syncope but reported feeling a little lightheaded for a few seconds yesterday while sitting in bed. No chills or rigors. Current Medications - Current Medications Current Medications: Active Medications Acetaminophen (Tylenol) 650 mg PO Q4HR PRN PRN Reason: Pain 1 to 4 Last Admin: 02/12/20 16:08 Dose: 650 mg Documented by: Lactated Ringer's (Lr) 1,000 mls @ 125 mls/hr IV .Q8H [facility] Last Admin: 02/12/20 20:02 Dose: 125 mls/hr Documented by: Cefepime HCl 2 gm/ Sodium (Chloride) 100 mls @ 200 mls/hr IV TID [facility] Last Infusion: 02/12/20 23:13 Dose: Infused Documented by: Ondansetron HCl (Zofran Inj) 4 mg IVP Q6HR PRN PRN Reason: Nausea / Vomiting Pantoprazole Sodium (Protonix) 40 mg PO QDAC [facility] Last Admin: 02/12/20 06:36 Dose: 40 mg Documented by: Sodium Chloride (Normal Saline Flush 0.9%) 10 ml IVP PRN PRN PRN Reason: NEEDED PER PROVIDER ORDERS Sodium Chloride (Normal Saline Flush 0.9%) 10 ml IVP 0100,0900,1700 [facility] Last Admin: 02/12/20 23:36 Dose: Not Given Documented by: Hydrochlorothiazide 25 mg PO DAILY 12/06/13 Rosuvastatin Calcium [Crestor] 40 mg PO DAILY 12/06/13 Amlodipine Besylate [Norvasc] 10 mg PO DAILY 02/12/20 Doxazosin Mesylate 4 mg PO QPM 02/12/20 Irbesartan 300 mg PO DAILY 02/12/20 Objective - Vital Signs/Intake & Output Reviewed Vital Signs: Yes Intake & Output: Intake & Output 02/10/20 02/11/20 02/12/20 02/13/20 23:59 23:59 23:59 23:59 Intake Total 5045.500 Output Total 2075 Balance 2970.500 - Objective General Appearance: positive: No acute distress, Alert Eyes Bilateral: positive: Normal inspection, Conjunctivae nml ENT: positive: ENT inspection nml Neck: positive: Nml inspection Respiratory: positive: No respiratory distress. negative: Wheezes, Rales Cardiovascular: positive: No murmur, Bradycardia. negative: Irregularly irregular, Tachycardia, Systolic murmur Abdomen: positive: Non-tender, No distention. negative: Tenderness Skin: positive: Warm, Dry Extremities: positive: Full ROM, No pedal edema Neurologic/Psychiatric: positive: Oriented x3, Motor nml - Lab Results Fish Bones: 02/12/20 05:25 02/12/20 05:25 Other Labs: Lab Results x24hrs 02/12/20 Range/Units 05:25 TSH 1.64 (0.34-5.60) uIU/mL - Diagnostic Imaging Diagnostic Imaging Results: positive: Final report reviewed Sepsis Event Note (H) - Evaluation Current Stage of Sepsis: Sepsis Possible source of Sepsis: positive: Genitourinary - Sepsis Criteria Sepsis Criteria: Recorded Temperature greater than 38.3C or Less than 36C, Recorded Respiratory Rate greater than 20 Assessment/Plan - Problem List (1) Sepsis Impression: Resolved. This is secondary to the UTI. He was febrile yesterday afternoon but his white count remains normal. Blood pressure is stable and lactic acid is normal as well. Continue Cefepime IV until we have sensitivities back and then we will de-escalate to oral antbiotics. Qualifiers: Sepsis type: sepsis due to unspecified organism Sepsis acute organ dysfunction status: without acute organ dysfunction Qualified Code(s): A41.9 - Sepsis, unspecified organism (2) Urinary tract infection Impression: This is the cause of the sepsis. Culture is growing e. coli. No evidence of obstruction on imaging. Continue Cefepime IV and will de-escalate to oral antibiotics once sensitivities are back. Follow up culture. Qualifiers: Urinary tract infection type: acute cystitis Hematuria presence: with hematuria Qualified Code(s): N30.01 - Acute cystitis with hematuria (3) Bradycardia Impression: He has been bradycardic with rates in the 40's and high 30's at times. Asymptomatic. Blood pressure is stable. TSH is normal. Check echo. (4) Gram-negative bacteremia Impression: This secondary to the urinary tract infection. Repeat cultures are negative. Continue IV antibiotics. (5) Hypertension Impression: He is currently normotensive. Will resume his home medications when his blood pressure rises. (6) History of bladder cancer Impression: Follow up on outpatient basis. (7) History of prostate cancer Impression: Follow up on outpatient basis. (8) Acute kidney injury Impression: Resolved. His renal function is back to baseline.
[2020-02-13] MEDS ORDERED: POTASSIUM CHLORIDE 20 MEQ TABLET PO ONE (10:15)
[2020-02-13] MEDS ORDERED: LOPERAMIDE 2 MG CAPSULE PO PRN (10:26)
[2020-02-13] MEDS: LOPERAMIDE 2 MG CAPSULE PO PRN (11:28)
[2020-02-13] MEDS ORDERED: LOPERAMIDE 2 MG CAPSULE PO ONE (11:34)
[2020-02-13] MEDS: LACTATED RINGERS 1,000 ML IV SCH (11:56)
[2020-02-13] MEDS: CEFEPIME 2 GM in SODIUM CHLORIDE 0.9% MINIBAG 100 ML IV SCH ×3 (11:56→21:09)
[2020-02-13] MEDS: PANTOPRAZOLE 40 MG TABLET PO SCH (11:57)
[2020-02-13] MEDS: SODIUM CHLORIDE FLUSH 0.9% 10 ML SYRINGE IVP SCH ×2 (11:57→17:00)
[2020-02-13 16:49] LABS: BASOPHILS % (AUTO) 0.2 %; EOSINOPHILS # (AUTO) 0.1 10^3/uL (0.0-0.7); EOSINOPHILS % (AUTO) 2.6 %; HGB - HEMOGLOBIN 9.2 g/dL (14.0-18.0); LYMPHOCYTES # (AUTO) 0.8 10^3/uL (1.5-3.5); MEAN CORPUSCULAR HEMOGLOBIN 31.5 pg (27.0-31.0); MEAN CORPUSCULAR HGB CONC 33.6 g/dL (32.0-36.0); MEAN CORPUSCULAR VOLUME 93.8 fL (80.0-94.0); MEAN PLATELET VOLUME 9.7 fL (7.4-11.4); MONOCYTES # (AUTO) 1.2 10^3/uL (0.0-1.0); MONOCYTES % (AUTO) 21.7 %; NEUTROPHILS # (AUTO) 3.3 10^3/uL (1.5-6.6); NEUTROPHILS % (AUTO) 60.9 %; PLT - PLATELET COUNT 116 10^3/uL (130-450); RED BLOOD COUNT 2.92 10^6/uL (4.70-6.10); RED CELL DISTRIBUTION WIDTH 13.3 % (12.0-15.0); WHITE BLOOD COUNT 5.3 x10^3/uL (4.8-10.8)
[2020-02-13 20:01] LABS: CALCIUM 7.8 mg/dL (8.5-10.3); CREATININE 1.2 mg/dL (0.6-1.2)
[2020-02-14] MEDS: SODIUM CHLORIDE FLUSH 0.9% 10 ML SYRINGE IVP SCH ×3 (01:00→16:09)
[2020-02-14 04:51] LABS: BASOPHILS % (AUTO) 0.2 %; EOSINOPHILS # (AUTO) 0.2 10^3/uL (0.0-0.7); EOSINOPHILS % (AUTO) 4.2 %; HGB - HEMOGLOBIN 9.2 g/dL (14.0-18.0); LYMPHOCYTES # (AUTO) 0.9 10^3/uL (1.5-3.5); LYMPHOCYTES % (AUTO) 17.7 %; MEAN CORPUSCULAR HEMOGLOBIN 31.6 pg (27.0-31.0); MEAN CORPUSCULAR HGB CONC 34.2 g/dL (32.0-36.0); MEAN CORPUSCULAR VOLUME 92.4 fL (80.0-94.0); MEAN PLATELET VOLUME 9.6 fL (7.4-11.4); MONOCYTES % (AUTO) 19.6 %; NEUTROPHILS # (AUTO) 2.9 10^3/uL (1.5-6.6); NEUTROPHILS % (AUTO) 57.9 %; PLT - PLATELET COUNT 123 10^3/uL (130-450); RED BLOOD COUNT 2.91 10^6/uL (4.70-6.10); RED CELL DISTRIBUTION WIDTH 13.2 % (12.0-15.0)
[2020-02-14 05:05] LABS: CALCIUM 8.1 mg/dL (8.5-10.3)
[2020-02-14] MEDS: CEFEPIME 2 GM in SODIUM CHLORIDE 0.9% MINIBAG 100 ML IV SCH (06:09)
[2020-02-14] MEDS: PANTOPRAZOLE 40 MG TABLET PO SCH (06:22)
[2020-02-14] MEDS: LOPERAMIDE 2 MG CAPSULE PO PRN (09:39)
[2020-02-14] MEDS: CIPROFLOXACIN 250 MG TABLET PO SCH ×2 (11:04→20:13)
--- NOTE | 2020-02-14 11:38 | PROVIDER PROGRESS NOTE ---
Subjective - Prog Note Date Prog Note Date: 02/14/20 Prog Note Time: 12:15 - Subjective Pt reports feeling: Improved Subjective: at the bedside. Several concerns. They wanted to make sure that we knew that he had prostate cancer. They described his diagnosis, treatment, rising PSA. Last treatment. They also are worried about a recent change in cardiovascular endurance. He is exhausted all the time. They note that his pulse has been in the 40s, sometimes a 30s, for 2 months. In reviewing his telemetry strips, he has been sinus bradycardia with a first-degree AV block. Heart rate is consistently in the 40s. Sometimes the 30s at night when he goes to sleep. But no second or third- degree block. He is on doxazosin, hydrochlorothiazide, irbesartan, and Norvasc. No rate lowering drugs. Current Medications - Current Medications Current Medications: Active Medications Acetaminophen (Tylenol) 650 mg PO Q4HR PRN PRN Reason: Pain 1 to 4 Last Admin: 02/12/20 16:08 Dose: 650 mg Documented by: Ciprofloxacin (Cipro) 500 mg PO BID [facility] Last Admin: 02/14/20 11:04 Dose: 500 mg Documented by: Loperamide HCl (Imodium) 2 mg PO QID PRN PRN Reason: Diarrhea Last Admin: 02/14/20 09:39 Dose: 2 mg Documented by: Ondansetron HCl (Zofran Inj) 4 mg IVP Q6HR PRN PRN Reason: Nausea / Vomiting Pantoprazole Sodium (Protonix) 40 mg PO QDAC [facility] Last Admin: 02/14/20 06:22 Dose: 40 mg Documented by: Sodium Chloride (Normal Saline Flush 0.9%) 10 ml IVP PRN PRN PRN Reason: NEEDED PER PROVIDER ORDERS Last Admin: 02/14/20 06:08 Dose: 10 ml Documented by: Sodium Chloride (Normal Saline Flush 0.9%) 10 ml IVP 0100,0900,1700 [facility] Last Admin: 02/14/20 11:04 Dose: 10 ml Documented by: Hydrochlorothiazide 25 mg PO DAILY 12/06/13 Rosuvastatin Calcium [Crestor] 40 mg PO DAILY 12/06/13 Amlodipine Besylate [Norvasc] 10 mg PO DAILY 02/12/20 Doxazosin Mesylate 4 mg PO QPM 02/12/20 Irbesartan 300 mg PO DAILY 02/12/20 Objective - Vital Signs/Intake & Output Reviewed Vital Signs: Yes Vital Signs: Vital Signs x48h Temp Pulse Resp BP Pulse Ox 02/14/20 08:57 36.8 C 49 L 18 140/47 H 98 02/14/20 05:54 36.9 C 47 L 17 136/50 H 100 Intake & Output: Intake & Output 02/11/20 02/12/20 02/13/20 02/14/20 23:59 23:59 23:59 23:59 Intake Total 5045.500 2477.5 340 Output Total 2075 850 375 Balance 2970.500 1627.5 -35 - Objective General Appearance: positive: No acute distress, Alert, Other (Delightful gentleman who looks younger than his stated age, at the bedside.) Eyes Bilateral: positive: PERRL ENT: positive: Pharynx nml Neck: positive: No JVD. negative: Stiff neck Respiratory: positive: Chest non-tender. negative: Wheezes, Rales, Rhonchi Cardiovascular: positive: Regular rate & rhythm. negative: Systolic murmur, Gallop/S4, Friction rub Abdomen: positive: Non-tender, No organomegaly, Nml bowel sounds, No distention Skin: positive: Warm, Dry Extremities: positive: Full ROM, No pedal edema Neurologic/Psychiatric: positive: Oriented x3, CN's nml (2-12), Motor nml - Lab Results Fish Bones: 02/14/20 04:40 02/14/20 04:40 Other Labs: Lab Results x24hrs 02/14/20 02/14/20 02/13/20 Range/Units 04:40 04:40 05:26 WBC 5.0 (4.8-10.8) x10^3/uL RBC 2.91 L (4.70-6.10) 10^6/uL Hgb 9.2 L (14.0-18.0) g/dL Hct 26.9 L (42.0-52.0) % MCV 92.4 (80.0-94.0) fL MCH 31.6 H (27.0-31.0) pg MCHC 34.2 (32.0-36.0) g/dL RDW 13.2 (12.0-15.0) % Plt Count 123 L (130-450) 10^3/uL MPV 9.6 (7.4-11.4) fL Neut # (Auto) 2.9 (1.5-6.6) 10^3/uL Lymph # (Auto) 0.9 L (1.5-3.5) 10^3/uL Burke # (Auto) 1.0 (0.0-1.0) 10^3/uL Eos # (Auto) 0.2 (0.0-0.7) 10^3/uL Baso # (Auto) 0.0 (0.0-0.1) 10^3/uL Absolute Nucleated RBC 0.00 x10^3/uL Nucleated RBC % 0.0 /100WBC Sodium 138 (135-145) mmol/L Potassium 3.8 (3.5-5.0) mmol/L Chloride 109 (101-111) mmol/L Carbon Dioxide 24 (21-32) mmol/L Anion Gap 5.0 L (6-13) BUN 16 (6-20) mg/dL Creatinine 1.0 (0.6-1.2) mg/dL Estimated GFR (MDRD) 71 L (>89) Glucose 128 H (70-100) mg/dL Calcium 8.1 L (8.5-10.3) mg/dL Iron (45-182) ug/dL TIBC (250-450) ug/dL % Saturation (20-50) % Transferrin (180-329) mg/dL Ferritin 356.1 H (23.9-336.2) ng/mL 02/13/20 02/13/20 Range/Units 05:26 05:00 WBC 5.3 (4.8-10.8) x10^3/uL RBC 2.92 L (4.70-6.10) 10^6/uL Hgb 9.2 L (14.0-18.0) g/dL Hct 27.4 L (42.0-52.0) % MCV 93.8 (80.0-94.0) fL MCH 31.5 H (27.0-31.0) pg MCHC 33.6 (32.0-36.0) g/dL RDW 13.3 (12.0-15.0) % Plt Count 116 L (130-450) 10^3/uL MPV 9.7 (7.4-11.4) fL Neut # (Auto) 3.3 (1.5-6.6) 10^3/uL Lymph # (Auto) 0.8 L (1.5-3.5) 10^3/uL Burke # (Auto) 1.2 H (0.0-1.0) 10^3/uL Eos # (Auto) 0.1 (0.0-0.7) 10^3/uL Baso # (Auto) 0.0 (0.0-0.1) 10^3/uL Absolute Nucleated RBC 0.00 x10^3/uL Nucleated RBC % 0.0 /100WBC Sodium 137 (135-145) mmol/L Potassium 3.7 (3.5-5.0) mmol/L Chloride 109 (101-111) mmol/L Carbon Dioxide 20 L (21-32) mmol/L Anion Gap 8.0 (6-13) BUN 30 H (6-20) mg/dL Creatinine 1.2 (0.6-1.2) mg/dL Estimated GFR (MDRD) 57 L (>89) Glucose 138 H (70-100) mg/dL Calcium 7.8 L (8.5-10.3) mg/dL Iron 24 L (45-182) ug/dL TIBC 178 L (250-450) ug/dL % Saturation 13 L (20-50) % Transferrin 127 L (180-329) mg/dL Ferritin (23.9-336.2) ng/mL ABX Reporting Has patient been on IV antibiotics over the past 48 hours?: Yes Sepsis Event Note (H) - Evaluation Current Stage of Sepsis: Resolved Possible source of Sepsis: positive: Genitourinary Confirmed Source and Organism (if known) of Sepsis: e coli - Sepsis Criteria Sepsis Criteria: Recorded Temperature greater than 38.3C or Less than 36C, Recorded Respiratory Rate greater than 20 Assessment/Plan - Problem List (1) Sepsis Impression: Resolved. This is secondary to the UTI. Blood cultures from the emergency room February 10 show E. coli that is pansensitive. 2 out of 4 bottles. Urine culture done in the emergency room February 10 shows E. coli that is pansensitive. He was started on Cipro p.o., came back to the hospital. Blood cultures from February 11 are negative, 2 sets. And urine culture is negative. He was febrile 02/11 afternoon but his white count remains normal. Blood pressure is stable and lactic acid is normal as well. Has been on Cefepime IV since admit on 02/11, and sensitivites are back. Please see below. Qualifiers: Sepsis type: sepsis due to unspecified organism Sepsis acute organ dysfunction status: without acute organ dysfunction Qualified Code(s): A41.9 - Sepsis, unspecified organism (2) Urinary tract infection with E coli. Impression: This is the cause of the sepsis. No evidence of obstruction on imaging.On Cefepime IV since 02/11 admit, and will de-escalate to oral antibiotics today now that sensitivities are back. Change to po cipro. If afebrile today, can go home tomorrow. I will send a copy of the discharge summary to Dr. Ankur Guevara, his Urologist, @ [facility] . Qualifiers: Urinary tract infection type: acute cystitis Hematuria presence: with hematuria Qualified Code(s): N30.01 - Acute cystitis with hematuria (3) Bradycardia Impression: He has been bradycardic with rates in the 40's and high 30's at times. Asymptomatic At rest. However over the last 2 to 3 months he finds himself exhausted. He used to be able to do much more activity that he is doing now. He finds himself having to sit down many times a day because he does not have the arm. He denies chest pain, Blood pressure is stable. TSH is normal. Echoc ardiogram, preliminary report, shows left ventricular wall thickness normal. Ejection fraction 50 to 55%. Diastole wall motion indeterminate. No regional wall motions abnormalities. Moderate increased left atrial volume index. Moderate increased right atrial volume index. Mild aortic sclerosis, no stenosis. Mild mitral regurgitation. Mild tricuspid regurgitation. RVSP 46 mmHg. The inferior vena cava is dilated suggestive of an estimated RAP of 8 mmHg. I spoke to Dr. Everardo Dent, [facility], [place], operated by [facility] cardiology. The patient is interested in seeing [facility], [place], operated by [facility] since is the most convenient for him. Unfortunately, this is not a clear-cut indication for a pacemaker, which is what the patient thought he needed. Chronotropic stimulation may not help him. Dr. Filipe will need to do a stress test and map out the rate before he can make a determination. (4) E coli bacteremia Impression: This secondary to the urinary tract infection. Repeat cultures are negative. Stop IV antibiotics and change to po cipro. Plan for 14 days of therapy. (5) Hypertension Impression: He is currently normotensive. Will resume his home medications when his blood pressure rises. (6) History of bladder cancer Impression: Follow up on outpatient basis. (7) History of prostate cancer Impression: Follow up on outpatient basis. He tells he his PSA went from 4-6 but then stayed about the same. Had antiandrogen therapy about 2 years ago and none since. I did discuss his UTI and bactermia with his Oncologist today, Dr. Ankur Bhardwaj from [facility]. (8) Acute kidney injury Impression: Resolved. His renal function is back to baseline. He was 1.6 creatinine on admission. Today he is 1.0. (9) iron deficiency anemia. He is not on oral iron tablets. We redid his iron studies and iron was 24, low. TIBC 178. Percent saturation 13. Transferring 127. Ferritin high at 356. TSH is 1.64. Plan: Start ferrous gluconate daily
[2020-02-14] MEDS: FERROUS GLUCONATE 324 MG TABLET PO SCH (14:43)
[2020-02-15] MEDS: SODIUM CHLORIDE FLUSH 0.9% 10 ML SYRINGE IVP SCH ×2 (00:25→08:16)
[2020-02-15 05:13] LABS: BASOPHILS % (AUTO) 0.4 %; EOSINOPHILS # (AUTO) 0.2 10^3/uL (0.0-0.7); EOSINOPHILS % (AUTO) 4.1 %; HGB - HEMOGLOBIN 9.7 g/dL (14.0-18.0); LYMPHOCYTES # (AUTO) 1.1 10^3/uL (1.5-3.5); LYMPHOCYTES % (AUTO) 19.4 %; MEAN CORPUSCULAR HEMOGLOBIN 30.9 pg (27.0-31.0); MEAN CORPUSCULAR HGB CONC 33.7 g/dL (32.0-36.0); MEAN CORPUSCULAR VOLUME 91.7 fL (80.0-94.0); MEAN PLATELET VOLUME 9.8 fL (7.4-11.4); MONOCYTES # (AUTO) 0.9 10^3/uL (0.0-1.0); MONOCYTES % (AUTO) 15.3 %; NEUTROPHILS # (AUTO) 3.4 10^3/uL (1.5-6.6); NEUTROPHILS % (AUTO) 60.4 %; PLT - PLATELET COUNT 149 10^3/uL (130-450); RED BLOOD COUNT 3.14 10^6/uL (4.70-6.10); RED CELL DISTRIBUTION WIDTH 13.1 % (12.0-15.0); WHITE BLOOD COUNT 5.6 x10^3/uL (4.8-10.8)
[2020-02-15 05:21] LABS: CALCIUM 8.7 mg/dL (8.5-10.3); CREATININE 0.9 mg/dL (0.6-1.2)
[2020-02-15] MEDS: PANTOPRAZOLE 40 MG TABLET PO SCH (06:04)
[2020-02-15] MEDS: CIPROFLOXACIN 250 MG TABLET PO SCH (08:16)
[2020-02-15 09:00] VITALS: BP 131/46
[2020-02-15] MEDS: FERROUS GLUCONATE 324 MG TABLET PO SCH (09:48)
[2020-02-15] MEDS: LOPERAMIDE 2 MG CAPSULE PO PRN (09:48)
--- NOTE | 2020-02-15 10:11 | Discharge Plan ---
Discharge Plan Problem Reviewed?: Yes Disposition: Home, Self Care Condition: Stable Prescriptions: Ciprofloxacin [Cipro] 500 mg PO BID #40 tablet Ferrous Gluconate [Fergon] 324 mg PO DAILYWM #30 tablet Diet: Regular Activity Restrictions: Activity as Tolerated Shower Restrictions: No Driving Restrictions: No Health Concerns: You came to our emergency room because you were having shaking chills. They found you to have a urinary tract infection and gave you an antibiotic to go home on. Unfortunately the blood cultures that they did in the emergency room became positive and you were brought back to the hospital. The blood cultures and urine have both grown out a bacteria called E. coli. I have let your urologist and oncologist know about this. Your oncologist and I both agree that you need to be on antibiotics for a total of 14 days. Now that you are leaving, you will need 10 more days of therapy. Plan of Treatment: 1. Ciprofloxacin, 250 mg tablets. 2 tablets twice a day for the next 10 days. 2. Taken [id number] probiotic to help with bowel health while you are on antibiotics 3. Follow-up with your urologist to let them know that you were seen for E. coli. I am sending him a copy of the discharge summary so he will have a report.I have also let your oncologist, Dr. Ankur Patel, know that you were here. 4. While here you complained of months of a slow heart rate in the 40s. You are now tired, less "get up and go". I did speak to Dr. Everardo Dent, cardiology. He will need to do a treadmill test and mapped out how slow your heart is. He is with [place] [facility]. Please have your primary care provider refer you to Dr. Dent or a chucking machine set up operator of your choice. Care Goals: 1. To complete therapy for your urinary tract infection and bacteremia (which is the bacteria in your blood) 2. To regain your endurance and strength with a faster heart rate if possible Assessment: Patient will follow through, understands goals No Smoking: If you smoke, Please STOP! Call for help. Follow-up with: Hi Bolden MD [Primary Care Provider] - Ankur Guevara MD [Physician No Access] -
--- NOTE | 2020-02-15 10:18 | DISCHARGE SUMMARY ---
"Discharge Summary Admit Date: 02/12/20 Discharge Date: 02/15/20 Discharging Provider: Dasha Mckeon MD Primary Care Provider: Hi Bolden MD Code Status: Attempt Resuscitation Condition at Discharge: Stable Discharge Disposition: 01 Home, Self Care - DIAGNOSES Discharge Diagnoses with Status of Each Condition: 1. Sepsis with UTI, present on admission, resolved 2. Urinary tract infection with E. coli 3. Bacteremia with E. coli 4. Sinus bradycardia with first-degree AV block 5. Hypertension 6. History of bladder cancer and prostate cancer 7. Acute kidney injury, resolved 8. Iron deficiency anemia - HPI History of Present Illness: Patient is an 89-year-old male with medical history significant for hypertension, hyperlipidemia, prostate cancer, bladder cancer and bladder stones who presented to the ED with rigor and because initial blood cultures were positive for gram negative bacilli. Patient symptoms started 2 days ago around midnight when he complained of not feeling well. His temperature at the time was 100 F. He was given Tylenol. By Thursday which was 2 days later he had a maximum temperature as high as 102 Fahrenheit. Recheck an hour later was 98. The contacted their primary care physician's office and was advised to come to the emergency room. He presented to the emergency department around 10 AM on Thursday. Work-up in the ED revealed that he had a urinary tract infection. At the time he did not have a white count, his lactic acid was normal and he was afebrile. Consequently he was given 1 g of Rocephin and a prescription for Cipro which he took 1 dose upon returning home. He went to bed around 5:30 pm And around 10 PM he was completely drenched in sweat. He was also experiencing uncontrollable shaking. About an hour after this the received a call from the [facility] asking him to return because his blood cultures were growing gram- negative bacilli. Consequently he returned to the hospital. At time of this visit the patient was having significant rigors. He denied chest pain, dyspnea, abdominal pain, nausea or vomiting. Additional blood cultures were drawn. And the patient was started on cefepime. He is being admitted for further treatment. History - Past Medical History Cardiovascular: reports: Hypertension, High cholesterol Respiratory: reports: None Endocrine/Autoimmune: reports: Type 2 diabetes GI: reports: None : reports: Benign prostate hypertrophy, Kidney stones, Other (bladder cancer and prostate cancer) HEENT: reports: None Psych: reports: None Musculoskeletal: reports: None Derm: reports: None MRSA Hx?: No - Past Surgical History General: reports: Colonoscopy, Other (hernia repair bilaterally with revist of one side) Ortho: reports: Other (bone spur and toes straightened on the right) HEENT: reports: Tonsil/Adenoidectomy - CONSULTS | PROCEDURES Procedures: 1. Abdomen pelvis CT: No acute intra-abdominal findings. Appendix not visualized. No ancillary findings to suggest appendicitis. Extensive sigmoid colon diverticulosis without diverticulitis. Aortic atherosclerosis. No renal pathology identified. Specifically no obstruction 2. Blood cultures February 10 with E. coli. Blood cultures February 11 negative.. 3. Urine culture February 10 with E. coli, repeat urine culture February 11 ne gative 4. echocardiogram. Ejection fraction is 50 to 55% with no wall motion abnormalities. Moderate increase in both atria sizes. Aortic valve sclerosis without stenosis. Mild mitral annular calcification with mild mitral regurgitation. - HOSPITAL COURSE Hospital Course: He presented as sepsis secondary to UTI. The blood cultures from the day before admission, through his ER stay, were pansensitive E. coli. Blood and urine were similar. He was put on cefepime February 11 and transitioned to oral antibiotics in the form of Cipro. He remained afebrile and is to go home on at least a total of 14 days of antibiotics from IV and oral combined. I discussed the case with his oncologist. I have also sent copies of the discharge summary to his urologist at [facility]. He did mention that he has been having bradycardia for the last few months. He finds himself exhausted. During our stay it was documented bradycardia into the 30s and 40s. I discussed the case with cardiology on-call, Everardo [facility]. Echocardiogram was discussed with him. Unfortunately a pacer may not help this patient. He is getting have to undergo a treadmill test and mapped out his heart rate. Hypertension was controlled during his stay, and his acute kidney kidney injury resolved. He was identified as having iron deficiency anemia during his stay with iron low at 24. TIBC 178. Percent saturation 13. Ferritin high at 356. TSH is 1.64 and he was started on ferrous gluconate. At discharge his temperature was 37. Pulse 41. Blood pressure 131/46. Respirations 18 and 97% on room air. 6 foot tall 80 kg white male, looks his stated age of 89. Lungs without crackles rhonchi wheezing or increased respiratory effort. A bradycardic regular rate and rhythm. Abdomen that was benign. Extremities without edema. He is able to use come to a sitting position, dangle his feet then stand without dizziness. Contact-guard assist to walk to the bathroom. Greater than 30 minutes was spent coordinating discharge. - ALLERGIES Allergies/Adverse Reactions: Allergies Allergy/AdvReac Type Severity Reaction Status Date / Time No Known Drug Allergies Allergy Verified 02/12/20 00:12 - MEDICATIONS Home Medications: Ambulatory Orders Medication Instructions Recorded Confirmed Hydrochlorothiazide 25 mg PO DAILY 12/06/13 02/12/20 Rosuvastatin Calcium [Crestor] 40 mg PO DAILY 12/06/13 02/12/20 Ciprofloxacin HCl [Cipro] 500 mg PO BID #14 tablet 02/11/20 02/12/20 Amlodipine Besylate [Norvasc] 10 mg PO DAILY 02/12/20 02/12/20 Doxazosin Mesylate 4 mg PO QPM 02/12/20 02/12/20 Irbesartan 300 mg PO DAILY 02/12/20 02/12/20 Ciprofloxacin [Cipro] 500 mg PO BID #40 tablet 02/15/20 Ferrous Gluconate [Fergon] 324 mg PO DAILYWM #30 tablet 02/15/20 - LABS Result Diagrams: 02/15/20 05:00 02/15/20 05:00 - SEPSIS Current Stage of Sepsis: Resolved Possible source of Sepsis: Genitourinary Sepsis Criteria: Recorded Temperature greater than 38.3C or Less than 36C, Recorded Respiratory Rate greater than 20"
== END 2020-02-15 11:57 | disposition home or self-care (01) | DRG 872 ==
LOC: ED 23:46 → MS2 02-12 00:43
PROVIDERS: ADMIT Internal Medicine; ATTEND Specialist
DX: A41.50 Gram-negative sepsis, unspecified (principal); N39.0 Urinary tract infection, site not specified; A41.51 Sepsis due to Escherichia coli [E. coli]; N30.01 Acute cystitis with hematuria; E78.00 Pure hypercholesterolemia, unspecified; N17.9 Acute kidney failure, unspecified; Z79.899 Other long term (current) drug therapy; I44.0 Atrioventricular block, first degree; I10 Essential (primary) hypertension; I08.2 Rheumatic disorders of both aortic and tricuspid valves; E11.9 Type 2 diabetes mellitus without complications; D50.9 Iron deficiency anemia, unspecified; K57.30 Diverticulosis of large intestine without perforation or abscess without bleeding; E78.5 Hyperlipidemia, unspecified; N40.0 Benign prostatic hyperplasia without lower urinary tract symptoms; Z85.46 Personal history of malignant neoplasm of prostate; Z85.51 Personal history of malignant neoplasm of bladder; Z87.442 Personal history of urinary calculi
CPT/HCPCS: 36415; 74177; 80048; 80053; 81001; 82728; 83540; 83605; 83690; 84443; 84466; 85025; 85027; 87040; 87086; 93005; 93306; A9270; J7120; Q9967; 81003

== ENCOUNTER 2020-03-08 10:26 | Outpatient (CLI) | payer MEDICARE, BC ==
[2020-03-08 15:10] LABS: BASOPHILS % (AUTO) 0.4 %; EOSINOPHILS # (AUTO) 0.1 10^3/uL (0.0-0.7); EOSINOPHILS % (AUTO) 2.3 %; HGB - HEMOGLOBIN 11.5 g/dL (14.0-18.0); LYMPHOCYTES # (AUTO) 1.4 10^3/uL (1.5-3.5); LYMPHOCYTES % (AUTO) 24.5 %; MEAN CORPUSCULAR HEMOGLOBIN 30.3 pg (27.0-31.0); MEAN CORPUSCULAR HGB CONC 32.2 g/dL (32.0-36.0); MEAN CORPUSCULAR VOLUME 94.2 fL (80.0-94.0); MEAN PLATELET VOLUME 12.5 fL (7.4-11.4); MONOCYTES # (AUTO) 0.8 10^3/uL (0.0-1.0); MONOCYTES % (AUTO) 13.9 %; NEUTROPHILS # (AUTO) 3.3 10^3/uL (1.5-6.6); NEUTROPHILS % (AUTO) 58.5 %; PLT - PLATELET COUNT 186 10^3/uL (130-450); RED BLOOD COUNT 3.79 10^6/uL (4.70-6.10); RED CELL DISTRIBUTION WIDTH 13.7 % (12.0-15.0); WHITE BLOOD COUNT 5.6 x10^3/uL (4.8-10.8)
[2020-03-08 15:37] LABS: % IRON SATURATION 28 % (20-50); IRON 83 ug/dL (45-182); TOTAL IRON BINDING CAPACITY 293 ug/dL (250-450); TRANSFERRIN 209 mg/dL (180-329)
== END 2020-03-08 10:27 | disposition home or self-care (01) ==
LOC: LAB.S 10:26
PROVIDERS: ATTEND Family Medicine
DX: D64.9 Anemia, unspecified (principal)
CPT/HCPCS: 36415; 82728; 83540; 84466; 85025

== ENCOUNTER 2020-04-30 07:47 | Outpatient (CLI) | payer MEDICARE, BC ==
[2020-04-30 15:04] LABS: ALBUMIN 4.2 g/dL (3.2-5.5); ALBUMIN/GLOBULIN RATIO 1.8 (1.0-2.2); ALKALINE PHOSPHATASE 47 IU/L (42-121); ALT ALANINE AMINOTRANSFERASE 16 IU/L (10-60); AST ASPARTATE AMINOTRANSFERASE 17 IU/L (10-42); BILIRUBIN,TOTAL 0.7 mg/dL (0.2-1.0); BUN - BLOOD UREA NITROGEN 34 mg/dL (6-20); CALCIUM 9.2 mg/dL (8.5-10.3); CARBON DIOXIDE - CO2 25 mmol/L (21-32); CHLORIDE 102 mmol/L (101-111); CHOL/HDL RATIO 2.4 (<5.0); CHOLESTEROL 183 mg/dL; CREATININE 1.2 mg/dL (0.6-1.2); GLUCOSE 124 mg/dL (70-100); HDL CHOLESTEROL 75 mg/dL; LDL CHOLESTEROL,CALCULATED 98 mg/dL; LDL/HDL RATIO 1.3 (<3.6); SODIUM 136 mmol/L (135-145); TOTAL PROTEIN 6.6 g/dL (6.7-8.2); VLDL CHOLESTEROL 10 mg/dL
[2020-04-30 15:05] LABS: BASOPHILS % (AUTO) 0.3 %; EOSINOPHILS # (AUTO) 0.2 10^3/uL (0.0-0.7); EOSINOPHILS % (AUTO) 3.2 %; HGB - HEMOGLOBIN 12.1 g/dL (14.0-18.0); LYMPHOCYTES # (AUTO) 1.8 10^3/uL (1.5-3.5); LYMPHOCYTES % (AUTO) 24.1 %; MEAN CORPUSCULAR HEMOGLOBIN 30.3 pg (27.0-31.0); MEAN CORPUSCULAR HGB CONC 31.8 g/dL (32.0-36.0); MEAN CORPUSCULAR VOLUME 95.2 fL (80.0-94.0); MEAN PLATELET VOLUME 12.7 fL (7.4-11.4); MONOCYTES % (AUTO) 12.5 %; NEUTROPHILS # (AUTO) 4.5 10^3/uL (1.5-6.6); NEUTROPHILS % (AUTO) 59.5 %; PLT - PLATELET COUNT 231 10^3/uL (130-450); RED BLOOD COUNT 3.99 10^6/uL (4.70-6.10); RED CELL DISTRIBUTION WIDTH 14.1 % (12.0-15.0); WHITE BLOOD COUNT 7.6 x10^3/uL (4.8-10.8)
== END 2020-04-30 07:48 | disposition home or self-care (01) ==
LOC: LAB.S 07:47
PROVIDERS: ATTEND Internal Medicine
DX: I10 Essential (primary) hypertension (principal); E11.9 Type 2 diabetes mellitus without complications
CPT/HCPCS: 36415; 80053; 80061; 83036; 83721; 85025

== ENCOUNTER 2020-05-30 07:41 | Outpatient (CLI) | payer MEDICARE, BC | END 2020-05-30 07:42 | disposition home or self-care (01) | LOC: LAB.S 07:41 | DX: C61 Malignant neoplasm of prostate (principal) | CPT/HCPCS: 36415; 84153 ==

== ENCOUNTER 2020-10-08 09:31 | Outpatient (CLI) | payer MEDICARE, BC | END 2020-10-08 09:32 | disposition home or self-care (01) | LOC: LAB 09:31 | PROVIDERS: ATTEND Internal Medicine | DX: C61 Malignant neoplasm of prostate (principal) | CPT/HCPCS: 36415; 84153; 84403 ==

== ENCOUNTER 2020-10-22 07:29 | Outpatient (CLI) | payer MEDICARE, BC ==
[2020-10-22 14:55] LABS: BASOPHILS % (AUTO) 0.5 %; EOSINOPHILS # (AUTO) 0.3 10^3/uL (0.0-0.7); EOSINOPHILS % (AUTO) 4.3 %; HCT - HEMATOCRIT 34.7 % (42.0-52.0); HGB - HEMOGLOBIN 10.8 g/dL (14.0-18.0); LYMPHOCYTES # (AUTO) 1.4 10^3/uL (1.5-3.5); LYMPHOCYTES % (AUTO) 23.4 %; MEAN CORPUSCULAR HEMOGLOBIN 29.9 pg (27.0-31.0); MEAN CORPUSCULAR HGB CONC 31.1 g/dL (32.0-36.0); MEAN CORPUSCULAR VOLUME 96.1 fL (80.0-94.0); MEAN PLATELET VOLUME 12.8 fL (7.4-11.4); MONOCYTES # (AUTO) 0.8 10^3/uL (0.0-1.0); MONOCYTES % (AUTO) 13.4 %; NEUTROPHILS # (AUTO) 3.5 10^3/uL (1.5-6.6); NEUTROPHILS % (AUTO) 57.9 %; PLT - PLATELET COUNT 187 10^3/uL (130-450); RED BLOOD COUNT 3.61 10^6/uL (4.70-6.10); RED CELL DISTRIBUTION WIDTH 14.6 % (12.0-15.0)
[2020-10-22 15:37] LABS: ALBUMIN 3.9 g/dL (3.2-5.5); ALBUMIN/GLOBULIN RATIO 1.7 (1.0-2.2); BILIRUBIN,TOTAL 0.7 mg/dL (0.2-1.0); POTASSIUM 4.2 mmol/L (3.5-5.0); TOTAL PROTEIN 6.2 g/dL (6.7-8.2)
== END 2020-10-22 07:30 | disposition home or self-care (01) ==
LOC: LAB.S 07:29
PROVIDERS: ATTEND Internal Medicine
DX: I10 Essential (primary) hypertension (principal)
CPT/HCPCS: 36415; 80053; 85025

== ENCOUNTER 2020-11-27 08:34 | Outpatient (CLI) | payer MEDICARE, BC ==
[2020-11-27 14:40] LABS: BASOPHILS % (AUTO) 0.3 %; EOSINOPHILS # (AUTO) 0.2 10^3/uL (0.0-0.7); EOSINOPHILS % (AUTO) 2.8 %; HCT - HEMATOCRIT 37.2 % (42.0-52.0); HGB - HEMOGLOBIN 11.6 g/dL (14.0-18.0); LYMPHOCYTES # (AUTO) 1.5 10^3/uL (1.5-3.5); LYMPHOCYTES % (AUTO) 21.1 %; MEAN CORPUSCULAR HEMOGLOBIN 30.3 pg (27.0-31.0); MEAN CORPUSCULAR HGB CONC 31.2 g/dL (32.0-36.0); MEAN CORPUSCULAR VOLUME 97.1 fL (80.0-94.0); MONOCYTES # (AUTO) 0.9 10^3/uL (0.0-1.0); NEUTROPHILS # (AUTO) 4.5 10^3/uL (1.5-6.6); NEUTROPHILS % (AUTO) 63.5 %; PLT - PLATELET COUNT 196 10^3/uL (130-450); RED BLOOD COUNT 3.83 10^6/uL (4.70-6.10); RED CELL DISTRIBUTION WIDTH 14.6 % (12.0-15.0); WHITE BLOOD COUNT 7.2 x10^3/uL (4.8-10.8)
[2020-11-27 14:56] LABS: ALBUMIN 4.2 g/dL (3.2-5.5); BILIRUBIN,TOTAL 0.5 mg/dL (0.2-1.0); CALCIUM 9.4 mg/dL (8.5-10.3); CREATININE 1.1 mg/dL (0.6-1.2); POTASSIUM 4.2 mmol/L (3.5-5.0); TOTAL PROTEIN 6.3 g/dL (6.7-8.2)
== END 2020-11-27 08:35 | disposition home or self-care (01) ==
LOC: LAB.S 08:34
PROVIDERS: ATTEND Internal Medicine
DX: I10 Essential (primary) hypertension (principal); D64.9 Anemia, unspecified
CPT/HCPCS: 36415; 80053; 82728; 85025

== ENCOUNTER 2020-12-03 07:10 | Outpatient (CLI) | payer MEDICARE, BC ==
[2020-12-03 20:15] LABS: ESTIMATED AVERAGE GLUCOSE 126 mg/dL (70-100)
== END 2020-12-03 07:11 | disposition home or self-care (01) ==
LOC: LAB.S 07:10
PROVIDERS: ATTEND Physician Assistant
DX: R73.9 Hyperglycemia, unspecified (principal)
CPT/HCPCS: 36415; 83036

== ENCOUNTER 2021-01-07 09:07 | Outpatient (CLI) | payer MEDICARE, BC | END 2021-01-07 09:08 | disposition home or self-care (01) | LOC: LAB.S 09:07 | PROVIDERS: ATTEND Internal Medicine | DX: C61 Malignant neoplasm of prostate (principal) | CPT/HCPCS: 36415; 84153; 84403 ==